=== PATIENT | male | born 1955 | race Hispanic/Latino ===

== ENCOUNTER 2019-02-07 08:14 | Outpatient (CLI) | payer OTHER ==
--- NOTE | 2019-02-07 08:57 | RAD ---
PA AND LATERAL VIEWS CHEST: HISTORY: Cough, decreased breath sounds of the left and right lung bases. FINDINGS: There are no previous exams for comparison. There is elevation of the left hemidiaphragm. The heart size is normal. The aorta is tortuous. No lobar consolidation, pneumothoraces, or pleural effusions are seen. No acute osseous abnormalities a re identified. IMPRESSION: No acute process. POS: [facility]
== END 2019-02-07 08:15 | disposition home or self-care (01) ==
LOC: BICRAD 08:14
DX: R09.89 Other specified symptoms and signs involving the circulatory and respiratory systems (principal)
CPT/HCPCS: 71046

== ENCOUNTER 2019-02-10 11:10 | Outpatient (CLI) | payer OTHER ==
--- NOTE | 2019-02-10 15:32 | RAD ---
Paranasal sinuses 3 views HISTORY: Chronic sinusitis. FINDINGS: No air-fluid levels or mucosal thickening are apparent within the paranasal sinuses. Nasal septum is midline. Orbital rims intact. IMPRESSION: No radiographic evidence of paranasal sinusitis.
== END 2019-02-10 11:11 | disposition home or self-care (01) ==
LOC: BICRAD 11:10
PROVIDERS: ATTEND Internal Medicine
DX: J32.9 Chronic sinusitis, unspecified (principal)
CPT/HCPCS: 70220

== ENCOUNTER 2019-11-17 09:03 | Outpatient (CLI) | payer OTHER ==
--- NOTE | 2019-11-17 10:43 | CT ---
CT ABDOMEN AND PELVIS WITH AND WITHOUT IV CONTRAST 11/17/2019 CLINICAL INFORMATION: Complex renal cyst COMPARISON: None. Technique: Multiple contiguous axial CT images are obtained through the abdomen and pelvis with IV contrast. Cor onal reformatted images are provided. FINDINGS: Lower Chest: A tiny pericardial effusion is present. There is elevation of the left hemidiaphragm with atelectasis present at the left lung base. Minimal dependent atelectasis is present at the right lung base. Vessels: Prominent dense vascular calcifications are seen in the coronary arteries. Vascular calcific ations are also seen in the abdominal aorta and involving the iliac arteries. Bilateral common iliac arteries are ectatic. Abdomen: Portal vein:Patent Gallbladder: Within normal limits for CT imaging. Liver: within normal limits. Spleen: within normal limits. Pancreas: within normal limits. Adrenals: within normal limits. Kidneys: There is a large fluid attenuation cystic lesion involving the midportion and inferior pole right kidney measuring 13.1 cm craniocaudal x10.5 cm AP x11 cm transverse. The margins of this large cyst are very irregular in appearance, there is no wall thickening. There are calcifications se en along the inferior wall of the cyst. There is mild right perinephric stranding which is asymmetric compared to the contralateral left side and primarily adjacent to the large cyst. There is a low-attenuation exophytic cyst midportion left kidney with greatest dimension of 6.4 cm wi th a 4.3 cm low-attenuation exophytic cyst at the superior pole left kidney. Few subcentimeter subcentimeter too small to characterize hypodense lesions are also seen in the midportion inferior po le left kidney. No enhancing renal lesion is identified, and there is no hydronephrosis present. No renal or ureteral calculi are seen bilaterally. Bowel: Colonic diverticulosis is visualized. Appendix: The appendix is visualized and normal in caliber. Peritoneum: No ascites or free air; no fluid collection. Mesentery and Retroperitoneum: No enlarged mesenteric or retroperitoneal lymph nodes. Abdominal Wall: There is a hypodense subcutaneous nodule lateral right chest anteriorly measuring 2.3 cm x 1.4 cm. This is at the skin surface and would be better assessed clinically. Pelvis: Reproductive Organs: No pelvic masses. Pelvis within normal limits. Bladder: within normal limits. Bones: Mild degenerative changes are seen. IMPRESSION: 1. Bosniak type II large inferior pole right renal cyst. Margins of this cyst are irregular in appear ance, and findings could be related to partial collapse of the cyst. Correlation for prior drainage of the cyst is suggested. Correlation with prior studies would also be helpful. 2. Left renal cysts with additional subcentimeter too small to characterize hypodense lesions. No enh ancing renal mass is seen in the kidneys bilaterally. 3. Tiny pericardial effusion. 4. Dense vascular calcifications in the coronary arteries as well as involving the abdominal aorta an d iliac arteries. 5. Colonic diverticulosis. 6. Elevation left hemidiaphragm with volume loss left lung base. 7. Subcutaneous nodule right anterior lateral chest which is at the skin surface. This would be александр r assessed clinically.
== END 2019-11-17 09:04 | disposition home or self-care (01) ==
LOC: SCSCT 09:03
PROVIDERS: ATTEND Urology
DX: N28.1 Cyst of kidney, acquired (principal); N28.9 Disorder of kidney and ureter, unspecified; I31.3 Pericardial effusion (noninflammatory); K57.30 Diverticulosis of large intestine without perforation or abscess without bleeding; J98.4 Other disorders of lung; R22.2 Localized swelling, mass and lump, trunk; I70.0 Atherosclerosis of aorta; I70.8 Atherosclerosis of other arteries; I25.10 Atherosclerotic heart disease of native coronary artery without angina pectoris
CPT/HCPCS: 74178; 82565

== ENCOUNTER 2020-01-16 16:12 | Outpatient (CLI) | payer OTHER ==
--- NOTE | 2020-01-17 08:00 | RAD ---
CHEST 2 VIEWS: Date: 01/16/2020 INDICATION: History of shortness of breath. COMPARISON: Prior study dated 02/07/2019. FINDINGS: There is stable elevation of the left hemidiaphragm. There is subsegmental volume loss in the left lo wer lobe which is similar appearing. No consolidation is evident. Heart size is normal. No acute osse ous abnormality is evident. IMPRESSION: No acute cardiopulmonary abnormality. POS: [facility]
== END 2020-01-16 16:13 | disposition home or self-care (01) ==
LOC: BICRAD 16:12
PROVIDERS: ATTEND Family Medicine
DX: R06.02 Shortness of breath (principal)
CPT/HCPCS: 71046

== ENCOUNTER 2022-05-19 08:41 | Day surgery (SDC) | payer OTHER ==
[2022-05-18 15:07] VITALS: BMI 34.0
[2022-05-19 09:12] LABS: #Basophils 0.1 thou/uL (0.0-0.2); #Eosinphils 0.2 thou/uL (0.0-0.7); #Lymphocytes 2.8 thou/uL (1.20-3.40); #Monocytes 0.6 thou/uL (0.11-0.59); %Basophils 0.9 % (0.0-1.0); %Eosinophils 2.2 % (0.0-10.0); %Lymphocytes 32.4 % (21.0-51.0); %Neutrophils 57.5 % (42.0-75.0); Hemoglobin 14.5 g/dL (14.0-18.0); Mean Corpuscular Hemoglobin 28.9 pg (27.0-31.0); Mean Corpuscular Volume 90.4 fL (78.0-98.0); Platelet Count 258 thou/uL (130-400); RBC Distribution Width 12.8 % (11.5-14.5); Red Blood Cell (RBC) Count 5.02 mill/uL (4.70-6.10); White Blood Cell (WBC) Count 8.6 thou/uL (4.8-10.8)
[2022-05-19 09:17] LABS: INR-International Normal Ratio 0.9; PTT 24.3 sec (22.9-36.1); Prothrombin Time 12.6 sec (12.0-14.7)
[2022-05-19] MEDS ORDERED: Sodium Bicarbonate 2.5 MEQ/5 ML VIAL ONE (09:57)
[2022-05-19 11:08] VITALS: BP 113/73; TEMP 97.2
== END 2022-05-19 10:55 | disposition home or self-care (01) ==
LOC: CT 08:41
PROVIDERS: ATTEND Urology
PROC: 0T903ZX Drainage of Right Kidney, Percutaneous Approach, Diagnostic (ICD-10-PCS; principal; 2022-05-19)
DX: N28.1 Cyst of kidney, acquired (principal); N40.1 Benign prostatic hyperplasia with lower urinary tract symptoms; R39.14 Feeling of incomplete bladder emptying; R35.1 Nocturia; I10 Essential (primary) hypertension; I25.2 Old myocardial infarction; E78.5 Hyperlipidemia, unspecified; E11.42 Type 2 diabetes mellitus with diabetic polyneuropathy; I25.10 Atherosclerotic heart disease of native coronary artery without angina pectoris; Z79.02 Long term (current) use of antithrombotics/antiplatelets; Z79.4 Long term (current) use of insulin; Z79.82 Long term (current) use of aspirin; Z79.84 Long term (current) use of oral hypoglycemic drugs; Z79.899 Other long term (current) drug therapy; Z95.5 Presence of coronary angioplasty implant and graft
CPT/HCPCS: 76770; 76942; 85025; 85610; 85730